=== PATIENT | male | born 1935 | race African-American/Black ===

== ENCOUNTER 2018-04-02 17:43 | Inpatient (IN) ==
[2018-04-02] MEDS ORDERED: Acetaminophen 325 MG Tablet PO ONE (18:37)
[2018-04-02] MEDS ORDERED: Sod Chloride 0.9% Inj 1,000 ML IV.SIG SCH (18:45)
[2018-04-02 18:52] LABS: Baso # (Auto) 0.1 th/mm3 (0.0-0.2); Baso % (Auto) 0.7 % (0.0-2.0); Eos % (Auto) 0.3 % (0.0-4.0); Hematocrit 36.2 % (39.0-51.0); Hemoglobin 12.1 gm/dL (13.0-17.0); Lymph # (Auto) 1.9 th/mm3 (1.0-4.8); Lymph % (Auto) 18.2 % (9.0-44.0); Mean Corpuscular HGB Conc 33.4 % (32.0-36.0); Mean Corpuscular Hemoglobin 27.8 pg (27.0-34.0); Mean Corpuscular Volume 83.4 fL (80.0-100.0); Mean Platelet Volume 9.6 fL (7.0-11.0); Mono # (Auto) 1.2 th/mm3 (0.0-0.9); Mono % (Auto) 11.6 % (0.0-8.0); Neut # (Auto) 7.3 th/mm3 (1.8-7.7); Neut % (Auto) 69.2 % (16.0-70.0); Platelet Count 209 th/mm3 (150-450); Red Blood Count 4.34 mil/mm3 (4.50-5.90); White Blood Count 10.5 th/mm3 (4.0-11.0)
[2018-04-02 19:02] LABS: Alanine Aminotransferase 18 U/L (12-78)
[2018-04-02 19:05] LABS: Activated Partial Thrombo Time 52.7 sec (23.4-31.7); INR 3.2 Ratio; Prothrombin Time 32.3 sec (9.8-11.6)
[2018-04-02 19:10] LABS: Albumin 2.9 g/dL (3.4-5.0); Alkaline Phosphatase 40 U/L (45-117); Anion Gap 8 meq/L (5-15); Aspartate Aminotransferase 46 U/L (15-37); Blood Urea Nitrogen 15 mg/dL (7-18); Calcium 8.1 mg/dL (8.5-10.1); Carbon Dioxide 24.5 meq/L (21.0-32.0); Chloride 108 meq/L (98-107); Creatine Kinase 486 U/L (39-308); Glomerular Filtration Rate 65 mL/min (>89); Glucose,Random 105 mg/dL (74-106); Magnesium 1.8 mg/dL (1.5-2.5); Sodium 140 meq/L (136-145); Total Protein 8.2 g/dL (6.4-8.2)
--- NOTE | 2018-04-02 19:20 | XR ---
EXAM DATE: 04/02/2018 7:16 PM EST AGE/SEX: 82 years / Male INDICATIONS: Fever. CLINICAL DATA: This is the patient's initial encounter. Patient reports that signs and symptoms have been present for 1 day and indicates a pain score of 0/10. MEDICAL/SURGICAL HISTORY: Hypercholesterolemia. Hypertension. Neuropathy. A-Fib. None. COMPARISON: No prior exams available for comparison. FINDINGS: Bilateral lower lobe infiltrates are present, left worse than right. No large effusions are seen. No pneumothorax. Heart size upper limits of normal. Thoracic aorta is tortuous. CONCLUSION: Left greater than right bilateral lower lobe pneumonia. Electronically signed by: Nickolas Osborne MD 04/02/2018 7:19 PM EST
[2018-04-02 19:23] LABS: CKMB Percent 0.9 % (0.0-4.0); Creatine Kinase MB 4.3 ng/mL (0.5-3.6)
[2018-04-02] MEDS ORDERED: Azithromycin Inj 500 MG in Sodium Chlor 0.9% Inj 250 ML IV.SIG ONE (19:40)
--- NOTE | 2018-04-02 19:49 | ED ---
HPI General Chief Complaint: Altered Mental Status Stated Complaint: Medical Time Seen by Provider: 04/02/18 18:23 Source: patient and family Mode of arrival: wheelchair Limitations: altered mental status History of Present Illness HPI narrative: 82-year-old male the presents to the ED for evaluation of altered mental status and fever. Per who provides most of the information patient today has been more lethargic than his usual. Today apparently patient was sleeping and the thought it was a little bit abnormal for him but she thought maybe he had a bad night so she went to do her daily routine. Apparently she came back home and found him in the bed and apparently he was full of urine and sweats. Per he is still very lethargic and for the most part is arousable but he seems to fall asleep on his own. He was found to have a fever here in the ED. Patient denies any symptoms. Patient himself denies any pain. He does not see anything wrong with him but he does fall asleep when I examined him. He denies any chest pain or shortness of breath. Per the only thing she has noticed that today he has been coughing and even though my examination he seemed to be coughing. Patient has not had any falls. No urinary issues other than being on himself on the bed. No sick contacts. Again no pain. Related Data Home Medications Medication Instructions Recorded Confirmed gabapentin 600 mg PO TID 04/02/18 04/02/18 simvastatin 40 mg PO QPM 04/02/18 04/02/18 sotalol 80 mg PO DAILY 04/02/18 04/02/18 terazosin 10 mg PO HS 04/02/18 04/02/18 triamterene-hydrochlorothiazid 1 tab PO DAILY 04/02/18 04/02/18 warfarin 5 mg PO DAILY 04/02/18 04/02/18 Allergies Allergy/AdvReac Type Severity Reaction Status Date / Time No Known Allergies Allergy Verified 04/02/18 18:17 Review of Systems ROS: all other systems reviewed are negative [facility] Medical History Medical History A-fib (Acute) Hypercholesteremia (Acute) Hypertension (Acute) Neuropathy (Acute) Surgical History Surgical History No history of previous surgery (Acute) Social History Social History Substance History: No History of Abuse Second Hand Smoke Exposure: No Smoking Status: Former smoker Tobacco Type: Cigarettes How Often Do You Have a Drink Containing Alcohol: Never Recent Out of Country Travel within the Last 8 Weeks: No Immunization History Tetanus Immunization: Unsure Exam Narrative Exam Narrative: GENERAL: Well appearing SKIN: Focused skin assessment warm/dry. HEAD: Atraumatic. Normocephalic. EYES: Pupils equal and round. No scleral icterus. No injection or drainage. ENT: No nasal bleeding or discharge. Mucous membranes pink and moist. NECK: Trachea midline. No JVD. CARDIOVASCULAR: Regular rate and rhythm. No murmur appreciated. RESPIRATORY: No accessory muscle use. Patient has bilateral rales on the lower lungs. Breath sounds equal bilaterally. GASTROINTESTINAL: Abdomen soft, non-tender, nondistended. Hepatic and splenic margins not palpable. MUSCULOSKELETAL: No obvious deformities. No clubbing. No cyanosis. No edema. Full range of motion of the upper and lower extremities bilaterally. 2+ pulses bilaterally. NEUROLOGICAL: Awake and alert. No obvious cranial nerve deficits. Motor grossly within normal limits. Normal speech. PSYCHIATRIC: Appropriate mood and affect; insight and judgment normal. Course Initial Documented Vital Signs Temperature 100.9 F H 04/02/18 18:13 Pulse Rate 103 H 04/02/18 18:13 Respiratory Rate 20 04/02/18 18:13 Blood Pressure 152/72 H 04/02/18 18:13 Pulse Oximetry 96 04/02/18 18:13 Last Documented Vital Signs Temperature 98.1 F 04/03/18 08:00 Pulse Rate 89 04/03/18 08:00 Respiratory Rate 16 04/03/18 08:00 Blood Pressure 149/72 H 04/03/18 08:00 Pulse Oximetry 100 04/03/18 08:00 Medical Decision Making DAPHNE Attestation DAPHNE supervised visit: Yes Attestation: I, Dr. De Dios, have reviewed the advance practice practitioner's documentation and am in agreement, met with the patient face to face, made the diagnosis, and the medical decision making was done by me. *My assessment and Findings: Pneumonia. Altered mental status. Possible sepsis. MDM Narrative Medical decision making narrative: 82-year-old male the presents to the ED for evaluation of altered mental status. Patient was properly examined and was found to have signs and symptoms consistent appears to be altered mental status. Labs and imaging were ordered. Patient was found to have a fever and slightly tachycardic. Labs and imaging were done and essentially show what appears to be bilateral pneumonia. Lactic acid is not bad but is 2.2. Patient still somewhat lethargic and is hard to arouse. Per patient is not back to normal. Patient was started on Rocephin IV as well as azithromycin. My attending was made aware of findings and agrees to admission. Case discussed with Dr. Jaeger who agrees admission to his service. Medical Screen Exam Complete: Yes Emergency Medical Condition: Yes Differential Diagnosis Differential Diagnosis: Sepsis versus pneumonia versus altered mental status versus UTI versus dehydration Medical Records Medical records reviewed: Yes I reviewed the patient's medical records. Lab Data Lab results reviewed: Yes I reviewed the patient's lab results. Result diagrams: 04/03/18 04:32 04/03/18 04:32 Lab Results 04/02/18 04/02/18 04/02/18 Range/Units 18:22 18:32 18:32 WBC 10.5 (4.0-11.0) th/mm3 RBC 4.34 L (4.50-5.90) mil/mm3 Hgb 12.1 L (13.0-17.0) gm/dL Hct 36.2 L (39.0-51.0) % MCV 83.4 (80.0-100.0) fL MCH 27.8 (27.0-34.0) pg MCHC 33.4 (32.0-36.0) % RDW 14.0 (11.6-17.2) % Plt Count 209 (150-450) th/mm3 MPV 9.6 (7.0-11.0) fL Neut % (Auto) 69.2 (16.0-70.0) % Lymph % (Auto) 18.2 (9.0-44.0) % Todd % (Auto) 11.6 H (0.0-8.0) % Eos % (Auto) 0.3 (0.0-4.0) % Baso % (Auto) 0.7 (0.0-2.0) % Neut # (Auto) 7.3 (1.8-7.7) th/mm3 Lymph # (Auto) 1.9 (1.0-4.8) th/mm3 Todd # (Auto) 1.2 H (0.0-0.9) th/mm3 Eos # (Auto) 0.0 (0.0-0.4) th/mm3 Baso # (Auto) 0.1 (0.0-0.2) th/mm3 WBC Differential . Differential Comment Auto diff final PT 32.3 H (9.8-11.6) sec INR 3.2 Ratio APTT 52.7 H (23.4-31.7) sec Sodium (136-145) meq/L Potassium (3.5-5.1) meq/L Chloride (98-107) meq/L Carbon Dioxide (21.0-32.0) meq/L Anion Gap (5-15) meq/L BUN (7-18) mg/dL Creatinine (0.60-1.30) mg/dL Estimated GFR (>89) mL/min POC Glucose 112 H (68-110) mg/dl Random Glucose (74-106) mg/dL Lactic Acid (0.4-2.0) mmol/L Calcium (8.5-10.1) mg/dL Magnesium (1.5-2.5) mg/dL Total Bilirubin (0.2-1.0) mg/dL AST (15-37) U/L ALT (12-78) U/L Alkaline Phosphatase (45-117) U/L Total Creatine Kinase (39-308) U/L CK-MB (CK-2) (0.5-3.6) ng/mL CK-MB (CK-2) % (0.0-4.0) % Troponin I (0.02-0.05) ng/mL Total Protein (6.4-8.2) g/dL Albumin (3.4-5.0) g/dL Urine Color (Yellw/Straw) Urine Clarity (Clear) Urine pH (5.0-8.5) Ur Specific [place] (1.002-1.035) Urine Protein (Neg-Trace) mg/dL Urine Glucose (UA) (Negative) mg/dL Urine Ketones (Negative) mg/dL Urine Occult Blood (Negative) Urine Nitrate (Negative) Urine Bilirubin (Negative) Urine Urobilinogen (Less than 2) mg/dL Ur Leukocyte Esterase (Negative) Urine RBC (0-3) /hpf Urine WBC (0-5) /hpf Hyaline Casts (0-3) /lpf Urine Mucus (Occasional) /lpf Micro UA Comment Ur Microscopic Review Urine Culture Comments 04/02/18 04/02/18 04/02/18 Range/Units 18:32 18:32 20:41 WBC (4.0-11.0) th/mm3 RBC (4.50-5.90) mil/mm3 Hgb (13.0-17.0) gm/dL Hct (39.0-51.0) % MCV (80.0-100.0) fL MCH (27.0-34.0) pg MCHC (32.0-36.0) % RDW (11.6-17.2) % Plt Count (150-450) th/mm3 MPV (7.0-11.0) fL Neut % (Auto) (16.0-70.0) % Lymph % (Auto) (9.0-44.0) % Todd % (Auto) (0.0-8.0) % Eos % (Auto) (0.0-4.0) % Baso % (Auto) (0.0-2.0) % Neut # (Auto) (1.8-7.7) th/mm3 Lymph # (Auto) (1.0-4.8) th/mm3 Todd # (Auto) (0.0-0.9) th/mm3 Eos # (Auto) (0.0-0.4) th/mm3 Baso # (Auto) (0.0-0.2) th/mm3 WBC Differential Differential Comment PT (9.8-11.6) sec INR Ratio APTT (23.4-31.7) sec Sodium 140 (136-145) meq/L Potassium 4.0 (3.5-5.1) meq/L Chloride 108 H (98-107) meq/L Carbon Dioxide 24.5 (21.0-32.0) meq/L Anion Gap 8 (5-15) meq/L BUN 15 (7-18) mg/dL Creatinine 1.29 (0.60-1.30) mg/dL Estimated GFR 65 L (>89) mL/min POC Glucose (68-110) mg/dl Random Glucose 105 (74-106) mg/dL Lactic Acid 2.2 H 2.3 H (0.4-2.0) mmol/L Calcium 8.1 L (8.5-10.1) mg/dL Magnesium 1.8 (1.5-2.5) mg/dL Total Bilirubin 0.8 (0.2-1.0) mg/dL AST 46 H (15-37) U/L ALT 18 (12-78) U/L Alkaline Phosphatase 40 L (45-117) U/L Total Creatine Kinase 486 H (39-308) U/L CK-MB (CK-2) 4.3 H (0.5-3.6) ng/mL CK-MB (CK-2) % 0.9 (0.0-4.0) % Troponin I Less than 0.02 L (0.02-0.05) ng/mL Total Protein 8.2 (6.4-8.2) g/dL Albumin 2.9 L (3.4-5.0) g/dL Urine Color (Yellw/Straw) Urine Clarity (Clear) Urine pH (5.0-8.5) Ur Specific [place] (1.002-1.035) Urine Protein (Neg-Trace) mg/dL Urine Glucose (UA) (Negative) mg/dL Urine Ketones (Negative) mg/dL Urine Occult Blood (Negative) Urine Nitrate (Negative) Urine Bilirubin (Negative) Urine Urobilinogen (Less than 2) mg/dL Ur Leukocyte Esterase (Negative) Urine RBC (0-3) /hpf Urine WBC (0-5) /hpf Hyaline Casts (0-3) /lpf Urine Mucus (Occasional) /lpf Micro UA Comment Ur Microscopic Review Urine Culture Comments 04/02/18 04/03/18 04/03/18 Range/Units 21:30 04:32 04:32 WBC 12.0 H (4.0-11.0) th/mm3 RBC 4.00 L (4.50-5.90) mil/mm3 Hgb 11.0 L (13.0-17.0) gm/dL Hct 32.8 L (39.0-51.0) % MCV 81.9 (80.0-100.0) fL MCH 27.5 (27.0-34.0) pg MCHC 33.6 (32.0-36.0) % RDW 14.7 (11.6-17.2) % Plt Count 135 L D (150-450) th/mm3 MPV 8.7 (7.0-11.0) fL Neut % (Auto) 90.6 H (16.0-70.0) % Lymph % (Auto) 7.0 L (9.0-44.0) % Todd % (Auto) 2.3 (0.0-8.0) % Eos % (Auto) 0.0 (0.0-4.0) % Baso % (Auto) 0.1 (0.0-2.0) % Neut # (Auto) 10.8 H (1.8-7.7) th/mm3 Lymph # (Auto) 0.8 L (1.0-4.8) th/mm3 Todd # (Auto) 0.3 (0.0-0.9) th/mm3 Eos # (Auto) 0.0 (0.0-0.4) th/mm3 Baso # (Auto) 0.0 (0.0-0.2) th/mm3 WBC Differential . Differential Comment Auto diff final PT 37.7 H (9.8-11.6) sec INR 3.7 Ratio APTT (23.4-31.7) sec Sodium (136-145) meq/L Potassium (3.5-5.1) meq/L Chloride (98-107) meq/L Carbon Dioxide (21.0-32.0) meq/L Anion Gap (5-15) meq/L BUN (7-18) mg/dL Creatinine (0.60-1.30) mg/dL Estimated GFR (>89) mL/min POC Glucose (68-110) mg/dl Random Glucose (74-106) mg/dL Lactic Acid (0.4-2.0) mmol/L Calcium (8.5-10.1) mg/dL Magnesium (1.5-2.5) mg/dL Total Bilirubin (0.2-1.0) mg/dL AST (15-37) U/L ALT (12-78) U/L Alkaline Phosphatase (45-117) U/L Total Creatine Kinase (39-308) U/L CK-MB (CK-2) (0.5-3.6) ng/mL CK-MB (CK-2) % (0.0-4.0) % Troponin I (0.02-0.05) ng/mL Total Protein (6.4-8.2) g/dL Albumin (3.4-5.0) g/dL Urine Color Yellow (Yellw/Straw) Urine Clarity Clear (Clear) Urine pH 6.0 (5.0-8.5) Ur Specific [place] 1.014 (1.002-1.035) Urine Protein Negative (Neg-Trace) mg/dL Urine Glucose (UA) Negative (Negative) mg/dL Urine Ketones Trace H (Negative) mg/dL Urine Occult Blood Moderate H (Negative) Urine Nitrate Negative (Negative) Urine Bilirubin Negative (Negative) Urine Urobilinogen Less than 2 (Less than 2) mg/dL Ur Leukocyte Esterase Negative (Negative) Urine RBC 6 H (0-3) /hpf Urine WBC 2 (0-5) /hpf Hyaline Casts 1 (0-3) /lpf Urine Mucus Few H (Occasional) /lpf Micro UA Comment Culture not ind Ur Microscopic Review Not Reportable Urine Culture Comments Culture not ind 04/03/18 Range/Units 04:32 WBC (4.0-11.0) th/mm3 RBC (4.50-5.90) mil/mm3 Hgb (13.0-17.0) gm/dL Hct (39.0-51.0) % MCV (80.0-100.0) fL MCH (27.0-34.0) pg MCHC (32.0-36.0) % RDW (11.6-17.2) % Plt Count (150-450) th/mm3 MPV (7.0-11.0) fL Neut % (Auto) (16.0-70.0) % Lymph % (Auto) (9.0-44.0) % Todd % (Auto) (0.0-8.0) % Eos % (Auto) (0.0-4.0) % Baso % (Auto) (0.0-2.0) % Neut # (Auto) (1.8-7.7) th/mm3 Lymph # (Auto) (1.0-4.8) th/mm3 Todd # (Auto) (0.0-0.9) th/mm3 Eos # (Auto) (0.0-0.4) th/mm3 Baso # (Auto) (0.0-0.2) th/mm3 WBC Differential Differential Comment PT (9.8-11.6) sec INR Ratio APTT (23.4-31.7) sec Sodium 144 (136-145) meq/L Potassium 3.3 L (3.5-5.1) meq/L Chloride 109 H (98-107) meq/L Carbon Dioxide 21.9 (21.0-32.0) meq/L Anion Gap 13 (5-15) meq/L BUN 15 (7-18) mg/dL Creatinine 1.16 (0.60-1.30) mg/dL Estimated GFR 73 L (>89) mL/min POC Glucose (68-110) mg/dl Random Glucose 172 H (74-106) mg/dL Lactic Acid (0.4-2.0) mmol/L Calcium 7.8 L (8.5-10.1) mg/dL Magnesium (1.5-2.5) mg/dL Total Bilirubin (0.2-1.0) mg/dL AST (15-37) U/L ALT (12-78) U/L Alkaline Phosphatase (45-117) U/L Total Creatine Kinase (39-308) U/L CK-MB (CK-2) (0.5-3.6) ng/mL CK-MB (CK-2) % (0.0-4.0) % Troponin I (0.02-0.05) ng/mL Total Protein (6.4-8.2) g/dL Albumin (3.4-5.0) g/dL Urine Color (Yellw/Straw) Urine Clarity (Clear) Urine pH (5.0-8.5) Ur Specific [place] (1.002-1.035) Urine Protein (Neg-Trace) mg/dL Urine Glucose (UA) (Negative) mg/dL Urine Ketones (Negative) mg/dL Urine Occult Blood (Negative) Urine Nitrate (Negative) Urine Bilirubin (Negative) Urine Urobilinogen (Less than 2) mg/dL Ur Leukocyte Esterase (Negative) Urine RBC (0-3) /hpf Urine WBC (0-5) /hpf Hyaline Casts (0-3) /lpf Urine Mucus (Occasional) /lpf Micro UA Comment Ur Microscopic Review Urine Culture Comments Imaging Data Attestation: I personally reviewed and interpreted this imaging study as follows : Radiologist's impression: Chest X-Ray 04/02/18 18:29 CONCLUSION: Left greater than right bilateral lower lobe pneumonia. Chest X-Ray 04/03/18 00:00 CONCLUSION: Stable appearance of the chest. ECG Data Attestation: I personally reviewed and interpreted this ECG as follows: Interpretation: EKG shows sinus tachycardia with a ventricular rate of 104 bpm. No sign of ST elevations or ischemia. Discharge Plan Discharge Disposition Patient Disposition: 30 Still Patient Discharge Details Diagnosis: Altered mental status, Pneumonia Physicians Team ED Provider: Calin De Dios ED Midlevel Provider: En Shin Primary Care Provider: Atif Duque Attending Provider: Valerio Jaeger Status ED Status: Left Department Discharge Information Discharge Date/Time: 04/02/18 21:09
[2018-04-02] MEDS ORDERED: Acetaminophen 325 MG Tablet PO PRN (20:02)
--- NOTE | 2018-04-02 21:12 | ECG ---
Date Performed: 04/02/2018 Time Performed: 18:16:57 PTAGE: 82 years EKG: JUNCTIONAL TACHYCARDIA NONSPECIFIC ST & T-WAVE ABNORMALITY ABNORMAL ECG Compared to prior e lectrocardiogram, rate has increased . DOCTOR: Pro Fitzgerald Interpretating Date/Time 04/02/2018 21:10:58
[2018-04-02] MEDS: KCL 20 mEq/NACL 0.45% Inj 1,000 ML IV.CONT SCH (22:24)
[2018-04-02] MEDS: Senna/Docusate Sodium 8.6/50 MG Tablet PO SCH (22:26)
[2018-04-02 22:27] LABS: Bilirubin,Urine Negative (Negative); Clarity,Urine Clear (Clear); Color,Urine Yellow (Yellw/Straw); Glucose,Urine (UA) Negative (Negative); Hyaline Casts,Urine 1 /lpf (0-3); Leukocyte Esterase,Urine Negative (Negative); Mucus,Urine Few /lpf (Occasional); Nitrite,Urine Negative (Negative); Specific Gravity,Urine 1.014 (1.002-1.035)
[2018-04-03 05:09] LABS: Baso % (Auto) 0.1 % (0.0-2.0); Hematocrit 32.8 % (39.0-51.0); Lymph # (Auto) 0.8 th/mm3 (1.0-4.8); Mean Corpuscular HGB Conc 33.6 % (32.0-36.0); Mean Corpuscular Hemoglobin 27.5 pg (27.0-34.0); Mean Corpuscular Volume 81.9 fL (80.0-100.0); Mean Platelet Volume 8.7 fL (7.0-11.0); Mono # (Auto) 0.3 th/mm3 (0.0-0.9); Mono % (Auto) 2.3 % (0.0-8.0); Neut # (Auto) 10.8 th/mm3 (1.8-7.7); Neut % (Auto) 90.6 % (16.0-70.0); Platelet Count 135 th/mm3 (150-450); Red Cell Distribution Width 14.7 % (11.6-17.2)
[2018-04-03 05:25] LABS: INR 3.7 Ratio; Prothrombin Time 37.7 sec (9.8-11.6)
[2018-04-03 05:35] LABS: Calcium 7.8 mg/dL (8.5-10.1); Carbon Dioxide 21.9 meq/L (21.0-32.0); Potassium 3.3 meq/L (3.5-5.1)
[2018-04-03] MEDS: Gabapentin 100 MG Capsule PO SCH ×3 (08:05→18:51)
[2018-04-03] MEDS: Senna/Docusate Sodium 8.6/50 MG Tablet PO SCH ×2 (08:05→20:08)
[2018-04-03] MEDS: Azithromycin 250 MG Tablet PO SCH (08:06)
--- NOTE | 2018-04-03 10:15 | XR ---
EXAM DATE: 04/03/2018 10:11 AM EST AGE/SEX: 82 years / Male INDICATIONS: Evaluate for pneumonia, pneumothorax, or communicable disease. CLINICAL DATA: This is the patient's subsequent encounter. Patient reports that signs and symptoms h ave been present for 3 days and indicates a pain score of 3/10. MEDICAL/SURGICAL HISTORY: . Hypercholesterolemia. Hypertension. Neuropathy. A-Fib. None. COMPARISON: [facility] [place], CHEST 1V SINGLE AP, 04/02/2018. . FINDINGS: There is cardiomegaly. No evidence of pneumothorax. Patchy airspace disease again seen in the lower l obes. Osseous structures are intact. CONCLUSION: Stable appearance of the chest. Electronically signed by: Floyd Esposito MD 04/03/2018 10:14 AM EST
--- NOTE | 2018-04-03 10:55 | P.HPIM ---
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 Patient presented to the ED last night for evaluation of altered mental status and fever. Temperature on arrival to the ER was 100.9. Patient is a poor historian therefore information gathered from prior computerized charting and patient's . Per patient's patient was more lethargic than his usual and had an episode of incontinence yesterday. Patient's reports that patient had been coughing and has had intermitted diaphoresis. Patient denies any symptoms. Per ER documentation last night pt was lethargic and drifted off to sleep during interview process. Patient today is awake and alert sitting up in bed eating pudding. Patient oriented x 3 at this time. Patient's is at bedside and reports patient is much better today than yesterday. In talking with patient's more it seems that he has been declining. Patient is only able to walk short distances with a walker. Patient mostly able to ambulate in the house with a walker. Patient also requires assistance with showering. Patient's does the shopping, cooking and finaces. Chest X-Ray 04/02/18 Left greater than right bilateral lower lobe pneumonia. 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, hyperlipidemia, hypertension, PAD, lumbar radiculopathy, paroxysmal atrial fibrillation, peripheral neuropathy, restless leg syndrome, leukemia diagnosed in 2000 in remission since 2002 PSxH: Colonoscopy and trigger finger injection FMH: reviewed and noncontributory Social history: lives at home with his Retired Denies EtOH use Former smoker Denies illicit drug use Inpatient Certification Estimated Total Length of Stay (Days): 3 Plans for Post Hospital Care: Not yet determined Medications and Allergies Allergies Allergy/AdvReac Type Severity Reaction Status Date / Time No Known Allergies Allergy Verified 04/02/18 18:17 Home Medications Medication Instructions Recorded Confirmed Type gabapentin 600 mg PO TID 04/02/18 04/02/18 History simvastatin 40 mg PO QPM 04/02/18 04/02/18 History sotalol 80 mg PO DAILY 04/02/18 04/02/18 History terazosin 10 mg PO HS 04/02/18 04/02/18 History triamterene-hydrochlorothiazid 1 tab PO DAILY 04/02/18 04/02/18 History warfarin 5 mg PO DAILY 04/02/18 04/02/18 History Active Medications: Active Medications Acetaminophen (Tylenol) 650 mg PO Q4H PRN PRN Reason: Temp > 100.4 Al Hydroxide/Mg Hydroxide (Milk Of Magnvijaya Liq) 30 ml PO Q12H PRN PRN Reason: Mild Constipation Azithromycin (Zithromax) 250 mg PO DAILY [facility] Last Admin: 04/03/18 08:06 Dose: 250 mg Gabapentin (Neurontin) 100 mg PO TID [facility] Last Admin: 04/03/18 08:05 Dose: 100 mg Ceftriaxone Sodium 1,000 mg/ (Sodium Chloride) 100 mls @ 200 mls/hr IV.SIG Q24H [facility] Last Admin: 04/03/18 07:58 Dose: 200 mls/hr Potassium Chloride/Sodium Chloride (Potassium Chlor 20 Meq/Nacl 0.45% Inj) 1, 000 mls @ 84 mls/hr IV.CONT .[id number] [facility] Last Admin: 04/02/18 22:24 Dose: 84 mls/hr Ondansetron HCl (Zofran Inj) 4 mg IV.PUSH Q6H PRN PRN Reason: NAUSEA OR VOMITING Pravastatin Sodium (Pravachol) 80 mg PO QPM [facility] Senna/Docusate Sodium (Bonny-Colace) 1 tab PO BID [facility] Last Admin: 04/03/18 08:05 Dose: 1 tab Sotalol HCl (Betapace) 80 mg PO DAILY [facility] Last Admin: 04/03/18 08:05 Dose: 80 mg Terazosin HCl (Hytrin) 10 mg PO HS [facility] Last Admin: 04/02/18 22:26 Dose: 10 mg Physical Exam Vital signs: Last Vital Signs Temp 98.1 F 04/03/18 08:00 Pulse 89 04/03/18 08:00 Resp 16 04/03/18 08:00 BP 149/72 H 04/03/18 08:00 Pulse Ox 100 04/03/18 08:00 Narrative: GENERAL: This is a well-nourished, well-developed patient, in no apparent distress. CARDIOVASCULAR: Regular rate and rhythm RESPIRATORY: Clear to auscultation. Breath sounds equal bilaterally. No wheezes , rales, or rhonchi. GASTROINTESTINAL: Abdomen soft, non-tender, nondistended. Normal active bowel sounds MUSCULOSKELETAL: Extremities without clubbing, cyanosis, or edema. NEURO: Alert & Oriented x 3 at this time. Moves all ext x4 Results Labs CBC & Chem 7: 04/06/18 04:43 04/06/18 04:43 Caprini VTE Risk Assessment Caprini VTE Risk Assessment: Moderate/High Risk (score >= 2) Caprini Risk Assessment Model: Point Value = 1 Point Value = 2 Point Value = 3 Point Value = 5 Age 41-60 Minor surgery BMI > 25 kg/m2 Swollen legs Varicose veins or History of unexplained or recurrent spontaneous Oral contraceptives or hormone replacement Sepsis (< 1 month) Serious lung disease, including pneumonia (< 1 month) Abnormal pulmonary function Acute myocardial infarction Congestive heart failure (< 1 month) History of inflammatory bowel disease Medical patient at bed rest Age 61-74 Arthroscopic surgery Major open surgery (> 45 min) Laparoscopic surgery (> 45 min) Malignancy Confined to bed (> 72 hours) Immobilizing plaster cast Central venous access Age >= 75 History of VTE Family history of VTE Factor V Leiden Prothrombin [id number] Lupus anticoagulant Anticardiolipin antibodies Elevated serum homocysteine Heparin-induced thrombocytopenia Other congenital or acquired thrombophilia Stroke (< 1 month) Elective arthroplasty Hip, pelvis, or leg fracture Acute spinal cord injury (< 1 month) Prophylaxis Regimen: Total Risk Factor Score Risk Level Prophylaxis Regimen 0-1 Low Early ambulation 2 Moderate Order ONE of the following: *Sequential Compression Device (SCD) *Heparin 5000 units SQ BID 3-4 Higher Order ONE of the following medications: *Heparin 5000 units SQ TID *Enoxaparin/Lovenox 40 mg SQ daily (WT < 150 kg, CrCl > 30 mL/min) *Enoxaparin/Lovenox 30 mg SQ daily (WT < 150 kg, CrCl > 10-29 mL/min) *Enoxaparin/Lovenox 30 mg SQ BID (WT < 150 kg, CrCl > 30 mL/min) AND/OR *Sequential Compression Device (SCD) 5 or more Highest Order ONE of the following medications: *Heparin 5000 units SQ TID (Preferred with Epidurals) *Enoxaparin/Lovenox 40 mg SQ daily (WT < 150 kg, CrCl > 30 mL/min) *Enoxaparin/Lovenox 30 mg SQ daily (WT < 150 kg, CrCl > 10-29 mL/min) *Enoxaparin/Lovenox 30 mg SQ BID (WT < 150 kg, CrCl > 30 mL/min) AND *Sequential Compression Device (SCD) Assessment and Plan Plan This is an 82-year-old male patient with past medical history which includes AAA , CAD, aortic stenosis, 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 Patient presented to the ED last night for evaluation of altered mental status and fever. Temperature on arrival to the ER was 100.9. Patient is a poor historian therefore information gathered from prior computerized charting and patient's . Per patient's patient was more lethargic than his usual and had an episode of incontinence yesterday. Patient's reports that patient had been coughing and has had intermitted diaphoresis. Patient denies any symptoms. Per ER documentation last night pt was lethargic and drifted off to sleep during interview process. Patient today is awake and alert sitting up in bed eating pudding. Patient oriented x 3 at this time. Patient's is at bedside and reports patient is much better today than yesterday. In talking with patient's more it seems that he has been declining. Patient is only able to walk short distances with a walker. Patient mostly able to ambulate in the house with a walker. Patient also requires assistance with showering. Patient's does the shopping, cooking and finaces. Bilateral lower lobe pneumonia Chest X-Ray 04/02/18 Left greater than right bilateral lower lobe pneumonia. Continue Rocephin and azithromycin Duo nebs every 6 hours as needed and as needed Recheck chest x-ray revealed Chest X-Ray 04/03/18 Stable appearance of the chest. 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 INR 3.7 we will hold Coumadin today Recheck INR tomorrow Thrombocytopenia, mild PLT on admission 209 -> 135 (11/11) Will observe recheck CBC in AM Hyperlipidemia Continue patient's home simvastatin 40 mg PO QHS Hypertension Paroxysmal atrial fibrillation Continue patient's home sotalol INR 3.7 we will hold Coumadin and recheck INR tomorrow Continue patient's home terazosin 10 mg PO QHS Hypokalemia potassium 3.3 04/03 replaced recheck BMP in AM DVT prophylaxis continue patient's home Coumadin Attending Attestation The exam, history, and the medical decision-making described in the above note were completed with the assistance of the mid-level provider. I reviewed and agree with the findings presented. I attest that I had a [id number] encounter with the patient on the same day, and personally performed and documented my assessment and findings in the medical record. Patient examined. Assessment and plan formulated with Adilene Middleton PA-C. I agree with the above. H&P: Quality VTE Deep Vein Thrombosis/Pulmonary Embolism Present on Admission: Yes
[2018-04-03] MEDS: KCL 20 mEq/NACL 0.45% Inj 1,000 ML IV.CONT SCH (13:18)
[2018-04-04] MEDS: KCL 20 mEq/NACL 0.45% Inj 1,000 ML IV.CONT SCH ×4 (02:14→20:37)
[2018-04-04] MEDS: Azithromycin 250 MG Tablet PO SCH (09:10)
[2018-04-04] MEDS: Senna/Docusate Sodium 8.6/50 MG Tablet PO SCH ×2 (09:10→20:48)
[2018-04-04] MEDS: Gabapentin 100 MG Capsule PO SCH ×4 (09:10→18:37)
[2018-04-04 09:52] LABS: Baso % (Auto) 0.1 % (0.0-2.0); Hematocrit 30.7 % (39.0-51.0); Hemoglobin 10.1 gm/dL (13.0-17.0); Lymph % (Auto) 6.5 % (9.0-44.0); Mean Corpuscular HGB Conc 32.9 % (32.0-36.0); Mean Corpuscular Hemoglobin 27.2 pg (27.0-34.0); Mean Corpuscular Volume 82.7 fL (80.0-100.0); Mean Platelet Volume 9.6 fL (7.0-11.0); Mono # (Auto) 0.9 th/mm3 (0.0-0.9); Mono % (Auto) 5.9 % (0.0-8.0); Neut # (Auto) 12.7 th/mm3 (1.8-7.7); Neut % (Auto) 87.5 % (16.0-70.0); Platelet Count 144 th/mm3 (150-450); Red Blood Count 3.71 mil/mm3 (4.50-5.90); Red Cell Distribution Width 14.8 % (11.6-17.2); White Blood Count 14.6 th/mm3 (4.0-11.0)
[2018-04-04 09:57] LABS: INR 4.5 Ratio; Prothrombin Time 44.9 sec (9.8-11.6)
[2018-04-04 10:30] LABS: Calcium 8.5 mg/dL (8.5-10.1); Carbon Dioxide 20.5 meq/L (21.0-32.0)
--- NOTE | 2018-04-04 13:37 | P.PNIM ---
Subjective Interval history: Patient is more agitated/argumentative today Patient refusing to take medication from nursing staff patient was in restraints earlier Physical Exam Vital signs: Last Vital Signs Temp 97.5 F L 04/04/18 08:00 Pulse 97 H 04/04/18 09:00 Resp 20 04/04/18 08:00 BP 202/96 H 04/04/18 08:00 Pulse Ox 95 04/04/18 04:00 Narrative: GENERAL: This is a well-nourished, well-developed patient, in no apparent distress. CARDIOVASCULAR: Regular rate and rhythm RESPIRATORY: Clear to auscultation. Breath sounds equal bilaterally. GASTROINTESTINAL: Abdomen soft, non-tender, nondistended. Normal active bowel sounds MUSCULOSKELETAL: Extremities without clubbing, cyanosis, or edema. NEURO: awake and alert, confused at times. agitated and augmentative. 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 Patient presented to the ED last night for evaluation of altered mental status and fever. Temperature on arrival to the ER was 100.9. Patient is a poor historian therefore information gathered from prior computerized charting and patient's . Per patient's patient was more lethargic than his usual and had an episode of incontinence yesterday. Patient's reports that patient had been coughing and has had intermitted diaphoresis. Patient denies any symptoms. Per ER documentation last night pt was lethargic and drifted off to sleep during interview process. Patient today is awake and alert sitting up in bed eating pudding. Patient oriented x 3 at this time. Patient's is at bedside and reports patient is much better today than yesterday. In talking with patient's more it seems that he has been declining. Patient is only able to walk short distances with a walker. Patient mostly able to ambulate in the house with a walker. Patient also requires assistance with showering. Patient's does the shopping, cooking and finances. Bilateral lower lobe pneumonia Chest X-Ray 04/02/18 Left greater than right bilateral lower lobe pneumonia. Continue Rocephin and azithromycin Duo nebs every 6 hours as needed and as needed Recheck chest x-ray revealed Chest X-Ray 04/03/18 Stable appearance of the chest. Supportive care consult speech therapy for swallow and cognitive eval Swallow evaluation per speech therapy recommending reg diet with thin liquids Cognitive eval pending Dr. Jaeger discussed the case with patient's over the. Dr. Jaeger feels this is due to dementia explained to . 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 INR 4.5 we will hold Coumadin today Recheck INR tomorrow Thrombocytopenia, mild PLT on admission 209 -> 135 (04/03) -> 144 (04/04) Hyperlipidemia Continue patient's home simvastatin 40 mg PO QHS Hypertension Paroxysmal atrial fibrillation Continue patient's home sotalol INR 4.5 we will hold Coumadin and recheck INR tomorrow Continue patient's home terazosin 10 mg PO QHS Hypokalemia potassium 3.3 04/03 -> (04/04) 4.0 replaced DVT prophylaxis continue patient's home Coumadin Attending Attestation The exam, history, and the medical decision-making described in the above note were completed with the assistance of the mid-level provider. I reviewed and agree with the findings presented. I attest that I had a [id number] encounter with the patient on the same day, and personally performed and documented my assessment and findings in the medical record. Patient examined. Assessment and plan formulated with Adilene Middleton PA-C. I agree with the above. Progress Note: Quality VTE Deep Vein Thrombosis/Pulmonary Embolism Present on Admission: Yes
[2018-04-04 16:20] LABS: Folate 8.8 ng/mL (3.1-17.5); Free T4 (Free Thyroxine) 1.12 ng/dL (0.76-1.46); Thyroid Stimulating Hormone 0.604 uIU/mL (0.358-3.740)
[2018-04-05 06:21] LABS: Baso % (Auto) 0.1 % (0.0-2.0); Eos % (Auto) 0.2 % (0.0-4.0); Hematocrit 29.2 % (39.0-51.0); Hemoglobin 9.9 gm/dL (13.0-17.0); Lymph # (Auto) 1.8 th/mm3 (1.0-4.8); Lymph % (Auto) 15.8 % (9.0-44.0); Mean Corpuscular Hemoglobin 27.8 pg (27.0-34.0); Mean Corpuscular Volume 81.8 fL (80.0-100.0); Mean Platelet Volume 9.5 fL (7.0-11.0); Mono # (Auto) 0.8 th/mm3 (0.0-0.9); Mono % (Auto) 6.5 % (0.0-8.0); Neut # (Auto) 8.9 th/mm3 (1.8-7.7); Neut % (Auto) 77.4 % (16.0-70.0); Platelet Count 148 th/mm3 (150-450); Red Blood Count 3.57 mil/mm3 (4.50-5.90); Red Cell Distribution Width 14.4 % (11.6-17.2); White Blood Count 11.5 th/mm3 (4.0-11.0)
[2018-04-05 06:42] LABS: INR 3.4 Ratio; Prothrombin Time 34.1 sec (9.8-11.6)
[2018-04-05] MEDS: Azithromycin 250 MG Tablet PO SCH (08:43)
[2018-04-05] MEDS: Senna/Docusate Sodium 8.6/50 MG Tablet PO SCH ×2 (08:43→21:18)
[2018-04-05] MEDS: Gabapentin 100 MG Capsule PO SCH ×3 (08:43→17:34)
[2018-04-05] MEDS ORDERED: Haloperidol Inj 5 MG/ML Ampul IM PRN (13:32)
--- NOTE | 2018-04-05 14:26 | P.CONPSY ---
Provisional Diagnosis Admission Date: April 02, 2018 20:00 Upham I.: Unspecified psychosis vs delirium due to another underlying medical condition Upham II.: Deferred History of Present Illness Service: Medicine Primary Care Provider: Atif Duque MD History of Present Illness: The patient is an 82-year-old -[place]i man, domiciled in [facility] with his , retired, without no previous psychiatric history, no previous suicide attempts, no previous psychiatric hospitalizations, he has history of alcoholism , but he is in a sustained full remission, with medical history which includes AAA, CAD, aortic stenosis, 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 Patient presented to the ED last night for evaluation of altered mental status and fever. Temperature on arrival to the ER was 100.9. Patient is a poor historian therefore information gathered from prior computerized charting and patient's . Per patient's patient was more lethargic than his usual and had an episode of incontinence yesterday. Patient' s reports that patient had been coughing and has had intermitted diaphoresis. Chest X-Ray 04/02/18 Left greater than right bilateral lower lobe pneumonia. Patient consulted to psychiatry due to symptoms of psychosis. Chart reviewed. Collateral information from and daughter obtained. On psychiatric evaluation the patient is sitting down, calm, superficially cooperative. The patient tells me that he feels fine, denies pain, he denies any distress. Reports to be in a good mood, but is unable to tell me the reason for his hospitalization. He is oriented in person, just partially oriented in place, he knows that he is in [facility], but he thinks he is a home. He is unable to recognize the faces of his family present in the room. He thinks that we are in 1980. He can repeat 3 words, but unable to remember then 3 minutes later. There is no agitation, no aggressive behavior, no increased paranoia at this moment. However, as per , the patient was at his baseline until Wednesday. She says that he is a very functional person, who was driving until about 2 weeks ago, able to socialize very well, to take care of himself, quite sharp. But, since last Wednesday he has been completely lost, but at the same time very agitated, having visual hallucinations of people that are not present in the room making accusations to the nurses that they wanted to kill him, which she is out of character for the patient. 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, hyperlipidemia, hypertension, PAD, lumbar radiculopathy, paroxysmal atrial fibrillation, peripheral neuropathy, restless leg syndrome, leukemia diagnosed in 2000 in remission since 2002 PSxH: Colonoscopy and trigger finger injection FMH: No psychiatric family history reviewed and noncontributory Substance: Patient used to take alcohol in the past, but has been sober for many years Social history: Patient was born and raised in [facility], he lives in [facility] with his , he has 4 kids, 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, supported by snf benefits Review of Systems Neurologic: Reports confusion, Reports memory loss, Reports sensory deficit Psychiatric: Reports abnormal sleep pattern, Reports irritability, Reports memory loss, Reports mood swings, Reports paranoia, Reports sensing things others do not sense [facility] - History History Provided By: Significant Other - Medical History Medical History: Medical History (Last Reviewed 04/05/18 @ 08:36 by Meliza Goldman) A-fib Hypercholesteremia Hypertension Leukemia Neuropathy - Surgical History Surgical History: Surgical History (Last Reviewed 04/05/18 @ 08:36 by Meliza Goldman) No history of previous surgery - Tobacco History Second Hand Smoke Exposure: No Tobacco Use In Past 30 Days: No Smoking Status: Former smoker Tobacco Type: Cigarettes - Alcohol History How Often Do You Have a Drink Containing Alcohol: Never - Substance Use History Substance History: No History of Abuse - Travel History Recent Travel Out of the Country Within the Last 8 Weeks: No - Immunization History Tetanus Immunization: >5 Years Hx Influenza Vaccine This Season: Yes Medications and Allergies Active Medications: Active Medications Acetaminophen (Tylenol) 650 mg PO Q4H PRN PRN Reason: Temp > 100.4 Al Hydroxide/Mg Hydroxide (Milk Of Magnvijaya Liq) 30 ml PO Q12H PRN PRN Reason: Mild Constipation Albuterol (Duoneb Neb (Prn)) 1 ampul NEB Q2HR NEB PRN PRN Reason: SHORTNESS OF BREATH/WHEEZING Albuterol (Duoneb Neb (Lisa)) 1 ampul NEB Q6HR WHILE AWAKE NEB [facility] Last Admin: 04/05/18 11:26 Dose: 1 ampul Azithromycin (Zithromax) 250 mg PO DAILY [facility] Last Admin: 04/05/18 08:43 Dose: 250 mg Clonidine HCl (Catapress-Tts 0.2 Mg Patch.7d) 1 patch T-DERMAL Q7D [facility] Last Admin: 04/04/18 18:04 Dose: 1 patch Enalaprilat (Vasotec Inj) 1.25 mg IV.PUSH Q6H PRN PRN Reason: SBP > 180 Gabapentin (Neurontin) 100 mg PO TID [facility] Last Admin: 04/05/18 12:22 Dose: 100 mg Haloperidol Lactate (Haldol Inj) 2 mg IM Q8H PRN PRN Reason: AGITATION Ceftriaxone Sodium 1,000 mg/ (Sodium Chloride) 100 mls @ 200 mls/hr IV.SIG Q24H [facility] Last Admin: 04/05/18 08:43 Dose: 200 mls/hr Lorazepam (Ativan Inj) 1 mg IV.PUSH Q6H PRN PRN Reason: AGITATION Last Admin: 04/05/18 01:08 Dose: 1 mg Nifedipine (Procardia Xl) 30 mg PO BID [facility] Last Admin: 04/05/18 08:43 Dose: 30 mg Ondansetron HCl (Zofran Inj) 4 mg IV.PUSH Q6H PRN PRN Reason: NAUSEA OR VOMITING Patch Removal (Remove Old Patch) 1 each T-DERMAL Q7D [facility] Pravastatin Sodium (Pravachol) 80 mg PO QPM [facility] Last Admin: 04/04/18 18:09 Dose: Not Given Risperidone (Risperdal) 0.5 mg PO BID [facility] Senna/Docusate Sodium (Bonny-Colace) 1 tab PO BID [facility] Last Admin: 04/05/18 08:43 Dose: 1 tab Sotalol HCl (Betapace) 80 mg PO DAILY [facility] Last Admin: 04/05/18 08:43 Dose: 80 mg Terazosin HCl (Hytrin) 10 mg PO HS [facility] Last Admin: 04/04/18 20:47 Dose: 10 mg Allergies Allergy/AdvReac Type Severity Reaction Status Date / Time No Known Allergies Allergy Verified 04/02/18 18:17 Home Medications Medication Instructions Recorded Confirmed Type gabapentin 600 mg PO TID 04/02/18 04/02/18 History simvastatin 40 mg PO QPM 04/02/18 04/02/18 History sotalol 80 mg PO DAILY 04/02/18 04/02/18 History terazosin 10 mg PO HS 04/02/18 04/02/18 History triamterene-hydrochlorothiazid 1 tab PO DAILY 04/02/18 04/02/18 History warfarin 5 mg PO DAILY 04/02/18 04/02/18 History Exam Vital signs: Vital Signs 04/04/18 13:41 04/04/18 16:00 04/04/18 19:49 Temperature 98.4 F Pulse Rate 87 82 85 Respiratory Rate 16 20 20 Blood Pressure 174/86 H Pulse Oximetry 93 L 92 L 95 04/04/18 20:00 04/05/18 00:00 04/05/18 04:00 Temperature 98.2 F 97.6 F 97.7 F Pulse Rate 97 H 96 H 69 Respiratory Rate 20 18 18 Blood Pressure 188/88 H 170/86 H 122/79 Pulse Oximetry 92 L 99 95 04/05/18 07:55 04/05/18 08:00 04/05/18 11:27 Temperature 98.2 F Pulse Rate 80 84 70 Respiratory Rate 16 16 18 Blood Pressure 150/72 H Pulse Oximetry 92 L 95 Intake & Output 04/04/18 04/05/18 04/05/18 18:59 06:59 18:59 Intake Total 2724 / 2724 1684 / 1684 Output Total 400 / 400 400 / 400 Balance 2324 / 2324 1284 / 1284 Weight 94.6 kg Intake: IV 1100 / 1100 200 / 200 Potassium Chlor 20 mEq/NACL 0. 1000 / 1000 200 / 200 45% Inj 1,000 ML @ 84 mls/hr IV .CONT .[id number] LISA Rx#:[id number] Rocephin Inj 1,000 MG In NS Inj 100 / 100 100 ML @ 200 mls/hr IV.SIG Q24H LISA Rx#:[id number] Oral 600 / 600 360 / 360 Other 1024 / 1024 1124 / 1124 Output: Urine 400 / 400 400 / 400 Other: # Voids 1 Date of Last Bowel Movement 04/03/18 04/03/18 # Bowel Movements 0 Narrative: No tremors, no EPS, no withdrawal symptoms, no psychomotor agitation or retardation at the moment - Constitutional no acute distress - Routine HEENT Exam Head: Present: normocephalic, Stoner's sign ENT: Present: mucous membranes moist Mental Status Examination Appearance: Appropriate Consciousness: Alert Orientation: Person Motor Activity: Normal gait Speech: Unremarkable Language: Adequate Fund of Knowledge: Adequate Attention and Concentration: Inadequate Memory: Unremarkable Mood: Good Affect: Labile Thought Process & Associations: Loose associations, Disorganized Thought Content: Appropriate Hallucination Type: Visual Delusion Type: Paranoid Suicidal Ideation: No Suicidal Plan: No Suicidal Intention: No Homicidal Ideation: No Homicidal Plan: No Homicidal Intention: No Insight: Poor Judgment: Poor Assessment and Plan - Assessment (1) Delirium Code(s): R41.0 - Disorientation, unspecified Status: Acute - Plan Plan: On psychiatric evaluation today the patient presents disoriented, superficially cooperative, with prominent attention deficit, unreliable. The patient reports good mood, he denies suicidal and homicidal ideation, he denies visual and auditory hallucinations, but the patient is unable to tell me the reason of his hospitalization, he is disoriented in time and place, with fluctuating level of consciousness and attention. Reportedly this presentation is started suddenly last Wednesday and before this the patient was at baseline/normal. During the hospitalization the patient also has been presenting visual hallucinations, agitation and prominent paranoia as per and nurses report. There is a patient without no previous psychiatric history, no prepsychotic hospitalizations, he has not been diagnosed with dementia, no previous suicidal attempt. This presentation seems to be consistent with delirium which most probably is related with a medical condition, in this case the UTI, pneumonia, A. fib could be responsible for the presentation. But brain CT/MRI are recommended to rule out brain pathology. Might consider a neurological consult to rule out epileptogenic activity as a source of altered mental status. I will order Risperdal 0.5 mg twice daily for delirium/psychosis. Haldol 2 mg every 8 hours as needed agitation and aggressive behavior. QTC is 373. Avoid deliriogenic medications as much as possible, such as benzodiazepines, anticholinergics, narcotics. Familiar faces around the patient, visible clock, frequent sensory stimulation and reorientation, appropriate light in the room are also recommended. If psychosis persist patient may need psychiatric admission, I will follow-up. Justification for Continued Inpatient Stay: Patient might benefit of psychiatric admission if psychosis persist beyond medical clearance.
--- NOTE | 2018-04-05 15:36 | P.PNIM ---
Subjective Interval history: Patient remains confused at times present in the room - patient calmer with present no new concerns/complaints at this time Physical Exam Vital signs: Last Vital Signs Temp 97.7 F 04/05/18 12:00 Pulse 68 04/05/18 12:00 Resp 16 04/05/18 12:00 BP 128/70 04/05/18 12:00 Pulse Ox 97 04/05/18 12:00 Narrative: GENERAL: This is a well-nourished, well-developed patient, in no apparent distress. CARDIOVASCULAR: Regular rate and rhythm RESPIRATORY: Clear to auscultation. Breath sounds equal bilaterally. GASTROINTESTINAL: Abdomen soft, non-tender, nondistended. Normal active bowel sounds MUSCULOSKELETAL: Extremities without clubbing, cyanosis, or edema. NEURO: awake and alert, confused. agitated and augmentative. 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 Patient presented to the ED last night for evaluation of altered mental status and fever. Temperature on arrival to the ER was 100.9. Patient is a poor historian therefore information gathered from prior computerized charting and patient's . Per patient's patient was more lethargic than his usual and had an episode of incontinence yesterday. Patient's reports that patient had been coughing and has had intermitted diaphoresis. Patient denies any symptoms. Per ER documentation last night pt was lethargic and drifted off to sleep during interview process. Patient today is awake and alert sitting up in bed eating pudding. Patient oriented x 3 at this time. Patient's is at bedside and reports patient is much better today than yesterday. In talking with patient's more it seems that he has been declining. Patient is only able to walk short distances with a walker. Patient mostly able to ambulate in the house with a walker. Patient also requires assistance with showering. Patient's does the shopping, cooking and finances. AMS dementia vs delirium consult psych psych feels the presentation more consistent with delirium related to medical condition recommending MRI, EEG, ?neurology consult psych will order Risperdal 0.5 mg twice daily for delirium/psychosis. Haldol 2 mg every 8 hours as needed agitation and aggressive behavior. QTC is 373. MRI brain ordered EEG ordered Bilateral lower lobe pneumonia WBC 12 -> 14.6 -> 11.5 (04/05) Chest X-Ray 04/02/18 Left greater than right bilateral lower lobe pneumonia. Continue Rocephin and azithromycin Duo nebs every 6 hours as needed and as needed Recheck chest x-ray revealed Chest X-Ray 04/03/18 Stable appearance of the chest. Supportive care consult speech therapy for swallow and cognitive eval Swallow evaluation per speech therapy recommending reg diet with thin liquids Cognitive eval pending Dr. Jaeger discussed the case with patient's over the. Dr. Jaeger feels this is due to dementia explained to . 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 INR 4.5 -> 3.4 (04/05) will continue to hold Coumadin Recheck INR tomorrow Thrombocytopenia, mild PLT on admission 209 -> 135 (04/03) -> 144 (04/04) 0> 148 (04/05) Hyperlipidemia Continue patient's home simvastatin 40 mg PO QHS Hypertension Paroxysmal atrial fibrillation Continue patient's home sotalol INR 4.5 we will hold Coumadin and recheck INR tomorrow Continue patient's home terazosin 10 mg PO QHS Hypokalemia potassium 3.3 04/03 -> (04/04) 4.0 replaced DVT prophylaxis continue patient's home Coumadin Anticipate DC Wednesday Attending Attestation The exam, history, and the medical decision-making described in the above note were completed with the assistance of the mid-level provider. I reviewed and agree with the findings presented. I attest that I had a [id number] encounter with the patient on the same day, and personally performed and documented my assessment and findings in the medical record. Patient examined. Assessment and plan formulated with Adilene Middleton PA-C. I agree with the above. Progress Note: Quality VTE Deep Vein Thrombosis/Pulmonary Embolism Present on Admission: Yes
--- NOTE | 2018-04-05 17:19 | XR ---
EXAM DATE: 04/05/2018 5:15 PM EST AGE/SEX: 82 years / Male INDICATIONS: . Cough. CLINICAL DATA: This is the patient's subsequent encounter. Patient reports that signs and symptoms h ave been present for 4 - 6 days and indicates a pain score of 0/10. MEDICAL/SURGICAL HISTORY: . Hypercholesterolemia. Hypertension. Neuropathy. A-Fib. None. COMPARISON: [facility] [place], CHEST 2V PA&LAT, 04/03/2018. . FINDINGS: AP and lateral views of the chest demonstrate decreased lung volumes with increased hazy bilateral pu lmonary opacities, predominantly in the perihilar and basilar regions. Enlargement of the cardiomedi astinal silhouette. It is difficult to exclude pleural fluid. Osseous structures are intact. CONCLUSION: Decreased lung volumes with increased hazy bilateral pulmonary opacities, most pronounced in the corine hilar and basilar regions. In the setting of an enlarged cardiomediastinal silhouette, findings sugge st pulmonary edema, though should be clinically correlated. Electronically signed by: Angela Mosley MD 04/05/2018 5:18 PM EST
--- NOTE | 2018-04-05 17:40 | XR ---
EXAM DATE: 04/05/2018 5:13 PM EST AGE/SEX: 82 years / Male INDICATIONS: MRI clearance. CLINICAL DATA: This is the patient's initial encounter. Patient reports that signs and symptoms have been present for 1 day and indicates a pain score of 0/10. MEDICAL/SURGICAL HISTORY: . Hypercholesterolemia. Hypertension. Neuropathy. A-Fib . COMPARISON: No prior exams available for comparison. FINDINGS: Ventriculostomy shunt tubing is identified within the right frontoparietal region, but the port has b een removed. CONCLUSION: Ventriculostomy shunt tubing is identified within the right frontoparietal region, but the port has b een removed. Electronically signed by: Rito Richards MD 04/05/2018 5:39 PM EST
[2018-04-05] MEDS ORDERED: Gadobutrol PF 10 MMOL/10 ML Vial (for RAD) IV.SIG ONE (20:06)
--- NOTE | 2018-04-05 20:39 | MR ---
EXAM DATE: 04/05/2018 8:25 PM EST AGE/SEX: 82 years / Male INDICATIONS: Altered mental status. Confusion for one day. CLINICAL DATA: This is the patient's initial encounter. Patient reports that signs and symptoms have been present for 1 day and indicates a pain score of 2/10. MEDICAL/SURGICAL HISTORY: Hypertension. Leukemia. . Ommaya reservoir. COMPARISON: [facility] [place] <4V, 04/05/2018. . TECHNIQUE: Multiplanar, multisequence examination of the brain was performed without and with 9 ml Ga davist (gadobutrol) contrast as a single exam dose. FINDINGS: There is motion degradation of the images despite using rapid acquisition sequences. Th e study is still of diagnostic quality. Cerebrum: The ventricles and sulci are mildly prominent. Ventriculostomy catheter courses from the h igh right frontal region with the tip near the interventricular septum.. No evidence of midline shif t, mass lesion, hemorrhage or acute infarction. No extraaxial fluid collections are seen. The pitui tary gland and suprasellar cistern are normal in configuration. White Matter: Mild diffuse T2 prolongation in the periventricular white matter. Posterior Fossa: The cerebellum and brainstem are intact. The 4th ventricle is midline. The cerebel lopontine angle is unremarkable. The cerebellar tonsils are normal in position. Diffusion Imaging: No focal areas of restricted diffusion are seen. No evidence of acute infarction . Extracranial: There is mild concentric mucosal thickening in the left maxillary sinus without air-fl uid level. Post Contrast: No abnormal areas of parenchymal or dural enhancement. No evidence of blood-brain ba rrier breakdown. CONCLUSION: 1. Moderate ventriculomegaly with right ventriculostomy tube in place. 2. No abnormal areas of enhancement in the supra or infratentorial brain. 3. Mild left maxillary sinus disease. Electronically signed by: Enrrique Coburn MD 04/05/2018 8:38 PM EST
[2018-04-06 06:07] LABS: Baso % (Auto) 0.5 % (0.0-2.0); Eos # (Auto) 0.2 th/mm3 (0.0-0.4); Eos % (Auto) 2.7 % (0.0-4.0); Hematocrit 32.9 % (39.0-51.0); Hemoglobin 11.1 gm/dL (13.0-17.0); Lymph # (Auto) 1.7 th/mm3 (1.0-4.8); Lymph % (Auto) 25.2 % (9.0-44.0); Mean Corpuscular HGB Conc 33.8 % (32.0-36.0); Mean Corpuscular Hemoglobin 27.8 pg (27.0-34.0); Mean Corpuscular Volume 82.1 fL (80.0-100.0); Mean Platelet Volume 8.9 fL (7.0-11.0); Mono # (Auto) 0.8 th/mm3 (0.0-0.9); Mono % (Auto) 11.7 % (0.0-8.0); Neut # (Auto) 4.1 th/mm3 (1.8-7.7); Neut % (Auto) 59.9 % (16.0-70.0); Platelet Count 174 th/mm3 (150-450); Red Blood Count 4.01 mil/mm3 (4.50-5.90); Red Cell Distribution Width 14.8 % (11.6-17.2); White Blood Count 6.8 th/mm3 (4.0-11.0)
[2018-04-06 06:23] LABS: Calcium 8.1 mg/dL (8.5-10.1); Carbon Dioxide 25.6 meq/L (21.0-32.0); Magnesium 2.3 mg/dL (1.5-2.5); Potassium 3.7 meq/L (3.5-5.1)
[2018-04-06] MEDS: Senna/Docusate Sodium 8.6/50 MG Tablet PO SCH (08:05)
[2018-04-06] MEDS: Azithromycin 250 MG Tablet PO SCH (08:05)
[2018-04-06] MEDS: Gabapentin 100 MG Capsule PO SCH ×3 (08:05→18:12)
--- NOTE | 2018-04-06 15:35 | P.PNIM ---
Subjective Interval history: Pt remains confused at times. Physical Exam Vital signs: Last Vital Signs Temp 97.4 F L 04/06/18 12:00 Pulse 75 04/06/18 12:49 Resp 20 04/06/18 12:49 BP 164/74 H 04/06/18 12:00 Pulse Ox 97 04/06/18 12:00 Narrative: GENERAL: This is a well-nourished, well-developed patient, in no apparent distress. CARDIOVASCULAR: Regular rate and rhythm RESPIRATORY: Clear to auscultation. Breath sounds equal bilaterally. GASTROINTESTINAL: Abdomen soft, non-tender, nondistended. Normal active bowel sounds MUSCULOSKELETAL: Extremities without clubbing, cyanosis, or edema. NEURO: awake and alert, confused. agitated and augmentative. 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 Patient presented to the ED last night for evaluation of altered mental status and fever. Temperature on arrival to the ER was 100.9. Patient is a poor historian therefore information gathered from prior computerized charting and patient's . Per patient's patient was more lethargic than his usual and had an episode of incontinence yesterday. Patient's reports that patient had been coughing and has had intermitted diaphoresis. Patient denies any symptoms. Per ER documentation last night pt was lethargic and drifted off to sleep during interview process. Patient today is awake and alert sitting up in bed eating pudding. Patient oriented x 3 at this time. Patient's is at bedside and reports patient is much better today than yesterday. In talking with patient's more it seems that he has been declining. Patient is only able to walk short distances with a walker. Patient mostly able to ambulate in the house with a walker. Patient also requires assistance with showering. Patient's does the shopping, cooking and finances. AMS dementia vs delirium - appreciate input from Psychiatry - No reversible causes of dementia identified - Pt had transcranial catheter placed for chemotherapy treatment in 2000. Catheter still present but port removed - Pt received treatment for lymphoctic leukemia in 2000, in remission since 2002 - MRI brain (04/06/18) 1. Moderate ventriculomegaly with right ventriculostomy tube in place. 2. No abnormal areas of enhancement in the supra or infratentorial brain. 3. Mild left maxillary sinus disease. - results of brain MRI d/w Radiology & felt unlikely to represent NPH - EEG results pending - continue risperdal 0.5mg BID - ativan 0.4mg - discharge to SNF - see discharge orders Bilateral lower lobe pneumonia WBC 12 -> 14.6 -> 11.5 (04/05) Chest X-Ray 04/02/18 Left greater than right bilateral lower lobe pneumonia. Continue Rocephin and azithromycin Duo nebs every 6 hours as needed and as needed Recheck chest x-ray revealed Chest X-Ray 04/03/18 Stable appearance of the chest. Supportive care consult speech therapy for swallow and cognitive eval Swallow evaluation per speech therapy recommending reg diet with thin liquids - Rocephin (04/03 - 04/06) - Azithromycin (04/03 - 04/06). - fever & leukocytosis resolved. 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
--- NOTE | 2018-04-06 15:54 | P.DS ---
DS: Providers Date of admission: 04/02/18 20:00 Primary care physician: Atif Duque MD Consults: 04/04/18 14:20 Consult to Psychiatry Routine Consulting Provider: Migel Ruby Build And Release Manager:: Dimitris Solorio Reason for Consultation: dementia with agitation Notified:: Service Spoke with:: kendrick Date Notified:: 04/04/18 Time Notified:: 14:24 Ordering Provider: HALIMA 04/05/18 16:03 HUB Only Consult Order Routine Consulting Provider: [facility],[place] Brief History from admission: This is an 82-year-old male patient with past medical history which includes AAA, CAD, aortic stenosis, 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 Patient presented to the ED last night for evaluation of altered mental status and fever. Temperature on arrival to the ER was 100.9. Patient is a poor historian therefore information gathered from prior computerized charting and patient's . Per patient's patient was more lethargic than his usual and had an episode of incontinence yesterday. Patient's reports that patient had been coughing and has had intermitted diaphoresis. Patient denies any symptoms. Per ER documentation last night pt was lethargic and drifted off to sleep during interview process. Patient today is awake and alert sitting up in bed eating pudding. Patient oriented x 3 at this time. Patient's is at bedside and reports patient is much better today than yesterday. In talking with patient's more it seems that he has been declining. Patient is only able to walk short distances with a walker. Patient mostly able to ambulate in the house with a walker. Patient also requires assistance with showering. Patient's does the shopping, cooking and finaces. Chest X-Ray 04/02/18 Left greater than right bilateral lower lobe pneumonia. 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, hyperlipidemia, hypertension, PAD, lumbar radiculopathy, paroxysmal atrial fibrillation, peripheral neuropathy, restless leg syndrome, leukemia diagnosed in 2000 in remission since 2002 PSxH: Colonoscopy and trigger finger injection FMH: reviewed and noncontributory Social history: lives at home with his Retired Denies EtOH use Former smoker Denies illicit drug use DS: Diagnosis Discharge Diagnosis (1) Delirium: Status: Acute DS: Summary This is an 82-year-old male patient with past medical history which includes AAA , CAD, aortic stenosis, 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 Patient presented to the ED last night for evaluation of altered mental status and fever. Temperature on arrival to the ER was 100.9. Patient is a poor historian therefore information gathered from prior computerized charting and patient's . Per patient's patient was more lethargic than his usual and had an episode of incontinence yesterday. Patient's reports that patient had been coughing and has had intermitted diaphoresis. Patient denies any symptoms. Per ER documentation last night pt was lethargic and drifted off to sleep during interview process. Patient today is awake and alert sitting up in bed eating pudding. Patient oriented x 3 at this time. Patient's is at bedside and reports patient is much better today than yesterday. In talking with patient's more it seems that he has been declining. Patient is only able to walk short distances with a walker. Patient mostly able to ambulate in the house with a walker. Patient also requires assistance with showering. Patient's does the shopping, cooking and finances. AMS dementia vs delirium - appreciate input from Psychiatry - No reversible causes of dementia identified - Pt had transcranial catheter placed for chemotherapy treatment in 2000. Catheter still present but port removed - Pt received treatment for lymphoctic leukemia in 2000, in remission since 2002 - MRI brain (04/06/18) 1. Moderate ventriculomegaly with right ventriculostomy tube in place. 2. No abnormal areas of enhancement in the supra or infratentorial brain. 3. Mild left maxillary sinus disease. - results of brain MRI d/w Radiology & felt unlikely to represent NPH - EEG results pending - continue risperdal 0.5mg BID - ativan 0.4mg - discharge to SNF - see discharge orders Bilateral lower lobe pneumonia WBC 12 -> 14.6 -> 11.5 (04/05) Chest X-Ray 04/02/18 Left greater than right bilateral lower lobe pneumonia. Continue Rocephin and azithromycin Duo nebs every 6 hours as needed and as needed Recheck chest x-ray revealed Chest X-Ray 04/03/18 Stable appearance of the chest. Supportive care consult speech therapy for swallow and cognitive eval Swallow evaluation per speech therapy recommending reg diet with thin liquids - Rocephin (04/03 - 04/06) - Azithromycin (04/03 - 04/06). - fever & leukocytosis resolved. 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 Acute pain exception. This patient has normal, predicted, physiological, and time limited response to an adverse mechanical stimulus associated with surgery, trauma, or acute illness as described in my notes. There is a lack of alternative treatment options other than to include the prescribed narcotic treatment for this condition. Time Spent with Patient Total time spent providing and/or coordinating discharge services: Quality: VTE Deep Vein Thrombosis/Pulmonary Embolism Present on Admission: Yes Results Labs on day of discharge: Labs from last 24 hours 04/06/18 04/06/18 04:43 04:43 WBC 6.8 RBC 4.01 L Hgb 11.1 L Hct 32.9 L MCV 82.1 MCH 27.8 MCHC 33.8 RDW 14.8 Plt Count 174 MPV 8.9 Neut % (Auto) 59.9 Lymph % (Auto) 25.2 [place] % (Auto) 11.7 H Eos % (Auto) 2.7 Baso % (Auto) 0.5 Neut # (Auto) 4.1 Lymph # (Auto) 1.7 [place] # (Auto) 0.8 Eos # (Auto) 0.2 Baso # (Auto) 0.0 WBC Differential . Differential Comment Auto diff final Sodium 144 Potassium 3.7 Chloride 113 H Carbon Dioxide 25.6 Anion Gap 5 BUN 17 Creatinine 1.02 Estimated GFR 85 L Random Glucose 103 Calcium 8.1 L Magnesium 2.3 Preliminary micro results at discharge 04/02/18 18:20 Aerobic Blood Culture - Preliminary Blood - Peripheral No growth in 4 days Anaerobic Blood Culture - Preliminary No growth in 4 days 04/02/18 18:32 Aerobic Blood Culture - Preliminary Blood - Peripheral No growth in 4 days Anaerobic Blood Culture - Preliminary No growth in 4 days Impressions ITS Impressions Head MRI 04/05/18 00:00 CONCLUSION: 1. Moderate ventriculomegaly with right ventriculostomy tube in place. 2. No abnormal areas of enhancement in the supra or infratentorial brain. 3. Mild left maxillary sinus disease. Skull X-Ray 04/05/18 00:00 CONCLUSION: Ventriculostomy shunt tubing is identified within the right frontoparietal region, but the port has been removed. Chest X-Ray 04/05/18 15:50 CONCLUSION: Decreased lung volumes with increased hazy bilateral pulmonary opacities, most pronounced in the perihilar and basilar regions. In the setting of an enlarged cardiomediastinal silhouette, findings suggest pulmonary edema, though should be clinically correlated. Discharge Plan Discharge Disposition Patient Disposition: Discharge to SNF Discharge Condition Condition: Stable Discharge Order Discharge Orders: Discharge Order (Routine); Ordered 04/06/18 Ordered By: Valerio Jaeger Discharge Details Anticipated Discharge Date: 04/06/18 Physicians Team Primary Care Provider: Atif Duque Attending Provider: Valerio Jaeger Other Providers: Migel Ruby ; [facility],[place] Rxs /Orders / Referrals /Forms Prescriptions: New lorazepam [Ativan] 1 mg tablet 0.5 mg PO Q8H PRN (Reason: agitation) Qty: 60 RF: 0 gabapentin 100 mg Capsule 100 mg PO TID 30 Days Qty: 90 RF: 0 risperidone 0.5 mg Tablet 0.5 mg PO BID 30 Days Qty: 60 RF: 0 nifedipine 30 mg Tablet Extended Release 24hr 30 mg PO BID 30 Days Qty: 60 RF: 0 clonidine [[id number]] 0.2 mg/24 hr Patch Weekly 1 patch Transdermal Q7D 30 Days Qty: 4 RF: 0 Continue simvastatin 40 mg Tablet 40 mg PO QPM RF: 0 warfarin 5 mg Tablet 5 mg PO DAILY RF: 0 terazosin 10 mg Capsule 10 mg PO HS RF: 0 sotalol 80 mg Tablet 80 mg PO DAILY RF: 0 No Action gabapentin 600 mg Tablet 600 mg PO TID RF: 0 triamterene-hydrochlorothiazid 37.5-25 mg Tablet 1 tab PO DAILY RF: 0 Referrals: Atif Duque MD [Primary Care Provider] - See Instructions Status ED Status: Left Department
[2018-04-06 16:53] VITALS: BP 171/81; RESP 18; TEMP 98.1; O2SAT 96
[2018-04-06 18:34] VITALS: PULSE 78
--- NOTE | 2018-04-06 22:22 | MG ---
cc: Irvin Schaffer MD DATE: 04/06/2018. EEG RECORD NUMBER: [id number] DESCRIPTION: 7-9 Hz posterior rhythm 20-40 microvolts. Good anterior to posterior gradient. Good EEG variability and reactivity noted. Frequent eye movement artifact in the frontal channels with lateralizing features. Reduced driving with photic stimulation. Single lead EKG showing sinus rhythm. INTERPRETATION: Normal awake electroencephalogram with frequent eye movement artifact. Clinical correlation. Irvin Schaffer MD MG/sv , 07:12 PM , 07:16 PM
== END 2018-04-06 18:47 ==
LOC: NEPE 17:43 → NEDA 20:00 → N04 20:57
PROVIDERS: ADMIT Hospitalist; ATTEND Hospitalist